=== PATIENT | female | born 1945 ===

== ENCOUNTER 2021-05-04 10:19 | Inpatient (IN) | payer OTHER ==
[~2021-05-04] VITALS: Ht 152.4 cm; Wt 64.9 kg
[2021-05-04] MEDS ORDERED: TOPROL XL50 M1 PO (10:27)
[2021-05-04] MEDS ORDERED: ADALAT CC60 MG PO (10:27)
[2021-05-07] MEDS ORDERED: FAMOTIDINE40 MG (07:58)
[2021-05-07] MEDS ORDERED: FLONASE16 GM (07:58)
[2021-05-07] MEDS ORDERED: PANTOPRAZOLE SO40 MG (07:59)
[2021-05-07] MEDS ORDERED: HYDROCHLOROTH12.5 MG (07:59)
[2021-05-07] MEDS ORDERED: VITAMIN D3250 MCG (07:59)
[2021-05-07] MEDS ORDERED: PERCOCET 5-3251 EACH PO (09:05)
[2021-05-07] MEDS ORDERED: COLACE100 MG PO (09:05)
[2021-05-07] MEDS ORDERED: NEURONTIN800 MG PO (09:05)
[2021-05-07] MEDS ORDERED: AMOX-CLAV 875-1 EACH PO (09:05)
[2021-05-07] MEDS ORDERED: MEDROLPACK PO (09:05)
== END 2021-05-08 12:22 | DRG 454 ==
LOC: PED 05-07 05:28 → O/R 05-07 05:28 → SURH 05-07 10:45 → PED 05-07 13:18 → O/R 05-07 13:34 → PED 05-07 16:10
PROVIDERS: ADMIT Orthopaedic Surgery Orthopaedic Surgery of the Spine; ATTEND Orthopaedic Surgery Orthopaedic Surgery of the Spine
PROC: 0SG00J1 Fusion of Lumbar Vertebral Joint with Synthetic Substitute, Posterior Approach, Posterior Column, Open Approach (ICD-10-PCS; 2021-05-07)
PROC: 0SB20ZZ Excision of Lumbar Vertebral Disc, Open Approach (ICD-10-PCS; 2021-05-07)
PROC: 009U3ZZ Drainage of Spinal Canal, Percutaneous Approach (ICD-10-PCS; 2021-05-07)
PROC: 0SG00A0 Fusion of Lumbar Vertebral Joint with Interbody Fusion Device, Anterior Approach, Anterior Column, Open Approach (ICD-10-PCS; principal; 2021-05-07 12:45)
DX: M48.062 Spinal stenosis, lumbar region with neurogenic claudication (principal); M51.06 Intervertebral disc disorders with myelopathy, lumbar region; Z20.822 Contact with and (suspected) exposure to COVID-19